=== PATIENT | female | born 1980 | race Two or more races ===

== ENCOUNTER 2024-08-09 19:25 | Inpatient (IN) | payer OTHER ==
[~2024-08-09] VITALS: Ht 160 cm; Wt 74.8 kg
[2024-08-09 20:10] VITALS: BP 93/56; PULSE 77; RESP 18; TEMP 97.8; O2SAT 97
[2024-08-09] MEDS ORDERED: PROCHLORPERAZINE MALEATE 10 MG TABLET PO PRN (21:00)
[2024-08-09] MEDS ORDERED: LOPERAMIDE HCL 2 MG CAPSULE PO PRN (21:00)
[2024-08-09] MEDS ORDERED: ONDANSETRON 4 MG RAPDIS TABLET PO PRN (21:00)
[2024-08-09] MEDS: ETHYL ALCOHOL 62% ANTISEPTIC NASAL SANITIZER 0.6 ML AMPUL NASAL SCH (21:40)
[2024-08-09] MEDS: MELATONIN 5 MG TABLET PO PRN (21:40)
[2024-08-09] MEDS: APIXABAN 2.5 MG TABLET PO SCH (21:41)
[2024-08-09] MEDS: DOCUSATE SODIUM 100 MG CAPSULE PO SCH (21:41)
[2024-08-09 23:10] VITALS: O2SAT 97
[2024-08-10] MEDS: OMEPRAZOLE 20 MG CAPSULE PO SCH (07:01)
[2024-08-10 08:00] VITALS: BP 94/66; PULSE 63; RESP 20; TEMP 98.1; O2SAT 96
[2024-08-10] MEDS: FERROUS SULFATE 325 MG EC TABLET PO SCH (08:11)
[2024-08-10] MEDS: LevETIRAcetam 500 MG TABLET PO SCH (08:12)
[2024-08-10] MEDS: POLYETHYLENE GLYCOL 3350 17 GM PACKET PO SCH (08:12)
[2024-08-10] MEDS: DEXAMETHASONE 4 MG TABLET PO SCH (08:12)
[2024-08-10 09:16] LABS: BASOPHILS % (AUTO) 0.1 % (0.0-2.0); EOSINOPHILS % (AUTO) 0 % (1.0-6.0); HEMATOCRIT 34.3 % (36-46); HEMOGLOBIN 10.9 g/dL (12.0-16.0); LYMPHOCYTES # (AUTO) 0.3 K/uL (1.0-4.8); LYMPHOCYTES % (AUTO) 10.6 % (22.0-44.0); MEAN CORPUSCULAR HEMOGLOBIN 24.8 pg (26.0-34.0); MEAN CORPUSCULAR HGB CONC 31.6 G/dL (31.0-37.0); MEAN CORPUSCULAR VOLUME 79 fL (80-100); MONOCYTES # (AUTO) 0.5 K/uL (0.1-1.0); MONOCYTES % (AUTO) 19.1 % (2.0-9.0); NEUTROPHILS # (AUTO) 1.8 K/uL (1.8-7.7); NEUTROPHILS % (AUTO) 70.2 % (40.0-70.0); PLATELET COUNT (AUTO) 87 K/uL (150-450); RED BLOOD CELL COUNT(AUTO) 4.37 MIL/uL (4.00-5.20); RED CELL DISTRIBUTION WIDTH 21.4 % (11.5-14.5); WHITE BLOOD COUNT (AUTO) 2.5 K/uL (4.5-11.0)
[2024-08-10 09:22] LABS: ALANINE AMINOTRANSFERASE 133 U/L (12-78); ALBUMIN 3.1 g/dL (3.4-5.0); ALKALINE PHOSPHATASE 135 U/L (46-116); ANION GAP 7 mmol/L (8-16); ASPARTATE AMINOTRANSFERASE 49 U/L (15-37); BILIRUBIN,TOTAL 0.9 mg/dL (0.1-1.0); CALCIUM, TOTAL 8.9 mg/dL (8.8-10.5); CARBON DIOXIDE 28 mmol/L (22-29); CHLORIDE 102 mmol/L (98-107); CREATININE 0.61 mg/dL (0.60-1.30); GLOMERULAR FILTR. RATE CALC > 60 mL/min (>60); GLUCOSE,RANDOM 89 mg/dL (70-110); SODIUM SERUM 137 mmol/L (136-145); TOTAL PROTEIN, SERUM 6.4 g/dL (6.4-8.2); UREA NITROGEN, BLOOD 23 mg/dL (7-18)
[2024-08-10] MEDS: OxyCODONE HCL 5 MG IR TABLET PO PRN (13:20)
[2024-08-10 20:00] VITALS: BP 105/69; PULSE 81; RESP 18; TEMP 98; O2SAT 97
[2024-08-10 21:00] VITALS: O2SAT 97
[2024-08-10] MEDS: SENNOSIDES 8.6 MG TABLET PO SCH (21:03)
[2024-08-11 08:05] VITALS: BP 101/66; PULSE 85; RESP 18; TEMP 98.6; O2SAT 98
[2024-08-11 18:00] VITALS: O2SAT 98
[2024-08-11 19:36] VITALS: BP 97/53; PULSE 82; RESP 18; TEMP 98.1; O2SAT 98
[2024-08-11 23:42] VITALS: O2SAT 98
[2024-08-12 08:00] VITALS: BP 103/71; PULSE 65; RESP 16; TEMP 97.5; O2SAT 99
[2024-08-12 20:11] VITALS: BP 107/57; PULSE 82; RESP 18; TEMP 98.7; O2SAT 99
[2024-08-13 08:00] VITALS: O2SAT 98
[2024-08-13 08:15] VITALS: BP 102/63; PULSE 55; RESP 18; TEMP 98; O2SAT 97
[2024-08-13 20:00] VITALS: BP 102/64; PULSE 70; RESP 18; TEMP 97.8; O2SAT 99
[2024-08-13] MEDS: DOCUSATE SODIUM 250 MG CAPSULE PO SCH (20:43)
[2024-08-14] MEDS ORDERED: POLY17PO47 PO (02:30)
[2024-08-14] MEDS ORDERED: ACET-2247 PO (02:30)
[2024-08-14] MEDS ORDERED: SENN-376 PO (02:30)
[2024-08-14] MEDS ORDERED: OMEP20 PO (02:30)
[2024-08-14] MEDS ORDERED: DOCU-412 PO (02:30)
[2024-08-14] MEDS ORDERED: MELA5TAB40 PO (02:30)
[2024-08-14] MEDS ORDERED: FERR325T27 PO (02:30)
[2024-08-14] MEDS ORDERED: DEXA4 PO (02:30)
[2024-08-14] MEDS ORDERED: LEVE-71 PO (02:30)
[2024-08-14] MEDS ORDERED: APIX2.5T PO (02:30)
[2024-08-14 08:00] VITALS: BP 102/72; PULSE 68; RESP 19; TEMP 98.4; O2SAT 99
[2024-08-14 19:30] VITALS: BP 85/46; PULSE 73; RESP 18; TEMP 98; O2SAT 98
[2024-08-14 19:45] VITALS: BP 97/62; PULSE 73; RESP 18; TEMP 98; O2SAT 98
[2024-08-14 21:00] VITALS: O2SAT 98
[2024-08-15 03:30] VITALS: BP 91/61; PULSE 68; RESP 18; O2SAT 97
[2024-08-15 08:00] VITALS: BP 93/62; PULSE 69; RESP 18; TEMP 98.3; O2SAT 95
[2024-08-15 20:00] VITALS: BP 96/66; PULSE 69; RESP 18; TEMP 98.3; O2SAT 98
[2024-08-16 00:33] VITALS: BP 99/54; PULSE 61; RESP 18; TEMP 97.9; O2SAT 98
[2024-08-16] MEDS: ACETAMINOPHEN 325 MG TABLET PO PRN (00:33)
[2024-08-16 07:16] LABS: BASOPHILS % (AUTO) 0.1 % (0.0-2.0); EOSINOPHILS % (AUTO) 0 % (1.0-6.0); HEMATOCRIT 31.7 % (36-46); HEMOGLOBIN 10.1 g/dL (12.0-16.0); LYMPHOCYTES # (AUTO) 0.6 K/uL (1.0-4.8); LYMPHOCYTES % (AUTO) 16.7 % (22.0-44.0); MEAN CORPUSCULAR HEMOGLOBIN 25.3 pg (26.0-34.0); MEAN CORPUSCULAR VOLUME 79 fL (80-100); MONOCYTES # (AUTO) 0.4 K/uL (0.1-1.0); MONOCYTES % (AUTO) 11.2 % (2.0-9.0); NEUTROPHILS # (AUTO) 2.7 K/uL (1.8-7.7); PLATELET COUNT (AUTO) 66 K/uL (150-450); RED CELL DISTRIBUTION WIDTH 22.2 % (11.5-14.5); WHITE BLOOD COUNT (AUTO) 3.8 K/uL (4.5-11.0)
[2024-08-16 07:30] VITALS: BP 109/67; PULSE 71; RESP 18; TEMP 98.6; O2SAT 97
[2024-08-16 07:44] LABS: ALANINE AMINOTRANSFERASE 58 U/L (12-78); ALBUMIN 2.8 g/dL (3.4-5.0); ALKALINE PHOSPHATASE 117 U/L (46-116); ANION GAP 7 mmol/L (8-16); ASPARTATE AMINOTRANSFERASE 20 U/L (15-37); BILIRUBIN,TOTAL 0.5 mg/dL (0.1-1.0); CALCIUM, TOTAL 8.4 mg/dL (8.8-10.5); CARBON DIOXIDE 26 mmol/L (22-29); CHLORIDE 105 mmol/L (98-107); CREATININE 0.57 mg/dL (0.60-1.30); GLOMERULAR FILTR. RATE CALC > 60 mL/min (>60); GLUCOSE,RANDOM 78 mg/dL (70-110); POTASSIUM 4.1 mmol/L (3.5-5.1); SODIUM SERUM 138 mmol/L (136-145); TOTAL PROTEIN, SERUM 5.7 g/dL (6.4-8.2); UREA NITROGEN, BLOOD 25 mg/dL (7-18)
[2024-08-16 08:08] LABS: RBC MORPHOLOGY COMMENT ABNORMAL RBC MORPH
[2024-08-16 10:05] VITALS: O2SAT 97
[2024-08-16 20:00] VITALS: BP 96/65; PULSE 75; RESP 18; TEMP 98; O2SAT 98
[2024-08-17 07:56] VITALS: BP 110/70; PULSE 74; RESP 18; TEMP 98.6; O2SAT 98
[2024-08-17 08:00] VITALS: O2SAT 98
[2024-08-17] MEDS ORDERED: SENN-374 PO (11:22)
[2024-08-17] MEDS ORDERED: APIX2.5T PO (11:22)
[2024-08-17] MEDS ORDERED: OMEP20 PO (11:22)
[2024-08-17] MEDS ORDERED: DOCU-412 PO (11:22)
[2024-08-17] MEDS ORDERED: DEXA4 PO (11:22)
[2024-08-17] MEDS ORDERED: LEVE-71 PO (11:22)
[2024-08-17] MEDS ORDERED: FERR325T27 PO (11:22)
[2024-08-17] MEDS ORDERED: POLY17PO62 PO (11:22)
== END 2024-08-17 12:45 | disposition home health service (06) | DRG 58 ==
LOC: 2WR 20:08
PROVIDERS: ADMIT Physical Medicine & Rehabilitation; ATTEND Physical Medicine & Rehabilitation
DX: G81.94 Hemiplegia, unspecified affecting left nondominant side (principal); G93.6 Cerebral edema; D61.818 Other pancytopenia; C50.919 Malignant neoplasm of unspecified site of unspecified female breast; C78.00 Secondary malignant neoplasm of unspecified lung; C78.7 Secondary malignant neoplasm of liver and intrahepatic bile duct; C79.31 Secondary malignant neoplasm of brain; R79.89 Other specified abnormal findings of blood chemistry; K74.69 Other cirrhosis of liver; E46 Unspecified protein-calorie malnutrition; Z74.09 Other reduced mobility; G40.909 Epilepsy, unspecified, not intractable, without status epilepticus; R74.8 Abnormal levels of other serum enzymes; G31.84 Mild cognitive impairment of uncertain or unknown etiology; K74.60 Unspecified cirrhosis of liver; Z86.711 Personal history of pulmonary embolism; Z86.718 Personal history of other venous thrombosis and embolism; Z68.29 Body mass index [BMI] 29.0-29.9, adult
CPT/HCPCS: 80053; 85025; 87081; 92507; 92523; 97110; 97112; 97116; 97163; 97167; 97530; 97535; 99366; J8540